=== PATIENT | female | born 1990 | race Two or more races ===

== ENCOUNTER 2024-01-18 14:00 | Inpatient (IN) | payer OTHER ==
[~2024-01-18] VITALS: Ht 165.1 cm; Wt 73.9 kg
[2024-01-24] MEDS ORDERED: OXYTOCIN 500 ML IV ONE (10:00)
[2024-01-24 10:25] LABS: HEMOGLOBIN 10.9 g/dL (12.0-15.00); MEAN CELL VOLUME 92.5 fL (80.00-100.00); MEAN CORPUSCULAR HEMOGLOBIN 32.5 pg (27.00-32.0); MEAN CORPUSCULAR HGB CONC 35.3 g/dl (32.0-36.0); PLATELET COUNT 191 K/uL (150-450); RED BLOOD COUNT 3.35 M/uL (4.00-6.00); RED CELL DISTRIBUTION WIDTH 14.3 % (11.5-14.5)
[2024-01-24 10:49] LABS: INR 1.02; PARTIAL THROMBOPLASTIN TIME 25.6 SECONDS (22.0-34.0); PROTHROMBIN TIME 10.7 SECONDS (9.0-11.5)
[2024-01-24 10:57] LABS: ALBUMIN 2.7 gm/dL (3.4-5.0); BILIRUBIN TOTAL 0.47 mg/dL (0.3-1.2); CALCIUM 9.3 mg/dL (8.5-10.1); CREATININE SERUM 0.61 mg/dL (0.55-1.02); GFR 112.27; GLOBULINA 3.2 G/DL (2.4-3.5); POTASSIUM 3.7 mEq/L (3.5-5.1); TOTAL PROTEIN 5.9 gm/dL (6.4-8.2)
[2024-01-24] MEDS ORDERED: PRENATABS RX T1 EACH PO (10:57)
[2024-01-24] MEDS ORDERED: VALTREX1000 MG PO (10:57)
[2024-01-24] MEDS ORDERED: RINGERS SOLUTION,LACTATED 1,000 ML IV SCH (11:00)
[2024-01-24] MEDS ORDERED: MORPHINE SULFATE 4 MG/ML CARTRIDGE IV ONE (13:30)
[2024-01-24] MEDS ORDERED: OXYTOCIN 10 UNITS/ML VIAL ONE (14:07)
[2024-01-24] MEDS ORDERED: CHLORHEXIDINE GLUCONATE 120 ML BOTTLE TOP ONE (14:11)
[2024-01-24] MEDS ORDERED: ERYTHROMYCIN BASE 1 GM TUBE OP ONE (14:11)
[2024-01-24] MEDS ORDERED: OXYTOCIN 20 UNITS/1000ML RL PIGGYBAG IV ONE ×2 (14:12→17:30)
[2024-01-24] MEDS ORDERED: CHLORHEXIDINE GLUCONATE 120 ML BOTTLE TOP SCH (17:15)
[2024-01-24] MEDS ORDERED: IBUprofen 400 MG TABLET PO PRN (17:15)
[2024-01-24] MEDS ORDERED: ERYTHROMYCIN BASE 1 GM TUBE OP SCH (17:15)
[2024-01-24] MEDS ORDERED: LIDOCAINE HCL 1% 200MG/20ML VIAL IJ SCH (17:15)
[2024-01-25 07:18] LABS: HEMATOCRIT 24.2 % (36.0-45.00); MEAN CELL VOLUME 92.7 fL (80.00-100.00); MEAN CORPUSCULAR HGB CONC 34.2 g/dl (32.0-36.0); PLATELET COUNT 155 K/uL (150-450); RED BLOOD COUNT 2.61 M/uL (4.00-6.00); RED CELL DISTRIBUTION WIDTH 14.1 % (11.5-14.5)
[2024-01-25 07:33] LABS: HEMOGLOBIN 8.3 g/dL (12.0-15.00); MEAN CORPUSCULAR HEMOGLOBIN 31.8 pg (27.00-32.0)
== END 2024-01-26 16:47 | disposition home or self-care (01) | DRG 807 ==
LOC: OB/GYN 14:00 → LDR 01-24 09:02 → OB/GYN 01-24 17:05
PROVIDERS: Obstetrics & Gynecology; ADMIT Obstetrics & Gynecology; ATTEND Obstetrics & Gynecology
PROC: 10E0XZZ Delivery of Products of Conception, External Approach (ICD-10-PCS; principal; 2024-01-24)
PROC: 0KQM0ZZ Repair Perineum Muscle, Open Approach (ICD-10-PCS; 2024-01-24)
PROC: 4A1HXCZ Monitoring of Products of Conception, Cardiac Rate, External Approach (ICD-10-PCS; 2024-01-24)
DX: O70.1 Second degree perineal laceration during delivery (principal); Z37.0 Single live birth; Z3A.39 39 weeks gestation of pregnancy; Z20.822 Contact with and (suspected) exposure to COVID-19

== ENCOUNTER 2024-01-28 16:52 | Emergency (ER) | payer OTHER ==
[~2024-01-28] VITALS: Ht 165.1 cm; Wt 69.4 kg
[~2024-01-28 16:52] MED LIST: PRENATABS RX T1 EACH PO; VALTREX1000 MG PO
[2024-01-28 18:13] LABS: MEAN CELL VOLUME 93.3 fL (80.00-100.00); MEAN CORPUSCULAR HGB CONC 34.2 g/dl (32.0-36.0); PLATELET COUNT 196 K/uL (150-450); RED BLOOD COUNT 2.79 M/uL (4.00-6.00); RED CELL DISTRIBUTION WIDTH 14.7 % (11.5-14.5)
[2024-01-28 18:15] LABS: HEMOGLOBIN 8.9 g/dL (12.0-15.00); MEAN CORPUSCULAR HEMOGLOBIN 31.8 pg (27.00-32.0)
[2024-01-28 18:23] LABS: PH,URINE 5.5 (5.0-8.0); URINE APPEARANCE Clear; URINE BILIRRUBIN Negative (NEGATIVE); URINE BLOOD Moderate; URINE COLOR Yellow; URINE GLUCOSE Negative (NEGATIVE); URINE LEUKOCYTE Small; URINE NITRATE Negative; URINE PROTEIN Trace (NEGATIVE)
[2024-01-28 18:27] LABS: URINE BACTERIA 738.2 uL (0.0-1933); URINE RBC 12.2 uL (0.0-20.8); URINE WBC 97.5 uL (0.0-23.2)
[2024-01-28 18:29] LABS: CREATININE SERUM 0.76 mg/dL (0.55-1.02); GFR 87.11; POTASSIUM 3.71 mEq/L (3.5-5.1)
[2024-01-28] MEDS ORDERED: CLINDAMYCIN PHOSPHATE 150 MG/ML (600mg) IM ONE (19:30)
== END 2024-01-28 19:42 | disposition home or self-care (01) ==
LOC: ER 16:53
PROVIDERS: General Practice
DX: O86.00 Infection of obstetric surgical wound, unspecified (principal); T88.9XXA Complication of surgical and medical care, unspecified, initial encounter